=== PATIENT | male | born 1990 | race Native Hawaiian/Other Pacific Islander ===

== ENCOUNTER 2018-05-12 00:46 | Emergency (ER) | payer OTHER ==
[~2018-05-12] VITALS: Ht 198.1 cm; Wt 136.1 kg
[2018-05-12 01:05] VITALS: BP 115/74; TEMP 99.3
[2018-05-12 01:52] LABS: PLATELET COUNT 167 K/uL (142-355)
[2018-05-12 02:06] LABS: POTASSIUM 3.6 mmol/L (3.6-5.2)
== END 2018-05-12 02:44 | disposition home or self-care (01) ==
LOC: ED 00:46
PROVIDERS: Emergency Medicine
DX: R50.9 Fever, unspecified (principal)
CPT/HCPCS: 80053; 83605; 85027; 87040; 87502; 87651; 99283